=== PATIENT | male | born 1965 | race Caucasian/White ===

== ENCOUNTER 2019-08-09 12:21 | Inpatient (IN) ==
[2019-08-09] MEDS ORDERED: DIAZEPAM 5 MG TABLET PO ONE (13:03)
[2019-08-09] MEDS ORDERED: FAMOTIDINE 20 MG TABLET PO ONE (13:03)
[2019-08-09 13:07] LABS: Basophils % 0.4 % (0.0-0.8); Eosinophils # 0.1 10*3/uL (0.0-0.87); Eosinophils % 1.5 % (0.00-10.9); Hemoglobin 14.1 GM/DL (14.0-18.0); Immature Granulocytes % 0.5 %; Immature Granulocytes Absolute 0.04 #; Lymphocytes # 2.3 10*3/uL (1.4-4.0); Lymphocytes % 31.3 % (21.2-54.2); Mean Corpuscular HGB Conc 33.6 GM/DL (32-36); Mean Corpuscular Volume 90.7 FL (87-102); Mean Platelet Volume 9.4 FL (9.6-12.0); Monocytes % 7.3 % (1.7-12.7); Platelet Count 290 T/CUMM (130-400); Red Blood Count 4.63 MC/CUMM (3.8-5.5); Red Cell Distribution Width 11.9 % (9.3-17.3); White Blood Count 7.4 T/CUMM (4-12)
[2019-08-09] MEDS ORDERED: DIAZEPAM 5 MG TABLET ONE (13:12)
[2019-08-09] MEDS ORDERED: FAMOTIDINE 20 MG TABLET ONE (13:12)
[2019-08-09] MEDS ORDERED: LACTATED RINGERS 1,000 ML IV SCH ×2 (13:30→16:00)
[2019-08-09 14:03] LABS: Apearance,Urine CLEAR (Clear); Bilirubin,Urine Negative (Negative); Blood, Urine Negative (Negative); Calcium Oxalate Crystals,Urine Occasional /HPF (Few); Glucose,Urine (UA) Negative (Negative); Ketones,Urine Negative (Negative); Mucus,Urine Occasional /LPF (Occasional); Nitrite,Urine Negative (Negative); Protein,Urine Negative; Urine Color Yellow (Yellow); Urine Specific Gravity 1.019 (1.001-1.035); Urine Urobilinogen < 2.0 EU/DL (0.2-1.0); WBC,Urine 1 /HPF (0-6)
[2019-08-09] MEDS ORDERED: BACITRACIN OINT 0.9 GM PACK TOP ONE (15:13)
[2019-08-09] MEDS ORDERED: BUPIVACAINE 0.5% 50 ML VIAL ONE (15:13)
[2019-08-09] MEDS ORDERED: MAGNESIUM HYDROXIDE SUSP 30 ML UDCUP PO PRN (15:46)
[2019-08-09] MEDS ORDERED: diphenhydrAMINE CAP 25 MG CAPSULE PO PRN (15:46)
[2019-08-09] MEDS ORDERED: KETOROLAC 30 MG/1 ML VIAL IV PRN (15:46)
[2019-08-09] MEDS ORDERED: ONDANSETRON 4 MG/2 ML VIAL IV PRN (15:46)
[2019-08-09] MEDS ORDERED: MORPHINE 4 MG/1 ML VIAL IV PRN ×2 (15:46)
[2019-08-09] MEDS ORDERED: LIDOCAINE 2% 5 ML VIAL ONE (16:33)
[2019-08-09] MEDS ORDERED: MIDAZOLAM 2 MG/2 ML VIAL ONE (16:33)
[2019-08-09] MEDS ORDERED: propofoL 200 MG/20 ML VIAL IV ONE (16:33)
[2019-08-09] MEDS ORDERED: DEXMEDETOMIDINE 200 MCG/2 ML VIAL ONE (16:34)
[2019-08-09] MEDS ORDERED: ONDANSETRON 4 MG/2 ML VIAL ONE (16:34)
[2019-08-09] MEDS ORDERED: fentaNYL 100 MCG/2 ML VIAL ONE (16:34)
[2019-08-09] MEDS ORDERED: VANCOMYCIN INJ 2,000 MG in SODIUM CHLORIDE 0.9% 500 ML IV ONE (18:30)
[2019-08-09 18:36] LABS: Calcium 8.5 MG/DL (8.5-10.1)
[2019-08-10] MEDS: VANCOMYCIN INJ 1,250 MG in SODIUM CHLORIDE 0.9% 250 ML IV SCH ×2 (05:53→17:34)
[2019-08-11] MEDS: VANCOMYCIN INJ 1,250 MG in SODIUM CHLORIDE 0.9% 250 ML IV SCH (05:38)
[2019-08-11 11:40] VITALS: BP 131/100
== END 2019-08-11 12:27 | disposition home or self-care (01) | DRG 581 ==
LOC: N.OR 12:21 → N.3E 15:46
PROVIDERS: ADMIT Orthopaedic Surgery; ATTEND Orthopaedic Surgery